=== PATIENT | male | born 1975 | race Caucasian/White ===

== ENCOUNTER 2016-12-28 20:32 | Emergency (ER) | payer OTHER ==
[~2016-12-28] VITALS: Ht 188 cm; Wt 106.9 kg
[2016-12-28 20:37] VITALS: Ht 188 cm; Wt 106.9 kg
[2016-12-28] MEDS ORDERED: LABETALOL HCL 20MG INJ IV ONE (21:00)
[2016-12-28 21:09] LABS: BASOPHIL # 0.1 10^3/ul (0.0-0.1); BASOPHILS % 0.6 % (0.0-2.0); EOSINOPHILS # 0.1 10^3/ul (0.0-0.5); EOSINOPHILS % 1.8 % (0.0-7.0); HEMATOCRIT 49.5 % (42.0-52.0); HEMOGLOBIN 16.6 g/dl (14.0-18.0); LYMPHOCYTES # 2.3 10^3/ul (0.8-2.9); LYMPHOCYTES % 29.2 % (15.0-51.0); MEAN CORPUSCULAR HEMOGLOBIN 27.2 pg (29.0-33.0); MEAN CORPUSCULAR HGB CONC 33.5 g/dl (32.0-37.0); MEAN CORPUSCULAR VOLUME 81.1 fl (82.0-101.0); MEAN PLATELET VOLUME 10.5 fl (7.4-10.4); MONOCYTE # 0.7 10^3/ul (0.3-0.9); MONOCYTES % 8.8 % (0.0-11.0); NEUTROPHIL # 4.7 10^3/ul (1.6-7.5); NEUTROPHILS % 59.3 % (39.0-77.0); PLATELET COUNT 201 10^3/UL (140-415); RED CELL DISTRIBUTION WIDTH 14.1 % (11.5-14.5); WHITE BLOOD COUNT 7.9 10^3/ul (4.8-10.8)
[2016-12-28 21:36] LABS: ANION GAP 15 (8-16); BLOOD UREA NITROGEN 15 mg/dl (7-20); CALCIUM 9.5 mg/dl (8.4-10.2); CARBON DIOXIDE 26 mmol/L (21-31); CHLORIDE 105 mmol/L (97-110); GLUCOSE 118 mg/dl (70-220); POTASSIUM 3.3 mmol/L (3.5-5.1); SODIUM 143 mmol/L (135-144)
[2016-12-28] MEDS ORDERED: POTASSIUM CHLORIDE (SR) 20 MEQ TAB PO STA (21:40)
[2016-12-28] MEDS ORDERED: HYD25 PO (21:41)
[2016-12-28 21:55] LABS: TROPONIN-I < 0.012 ng/ml (0.00-0.12)
[2016-12-28 21:58] VITALS: BP 189/105; PULSE 80; RESP 17
--- NOTE | 2016-12-28 21:59 | ERD ---
ER Documentation Chief Complaint Date/Time DATE: 12/28/16 TIME: 21:57 Chief Complaint BIB RESCUE FOR ELEVATED BP/DIZZINESS HPI Patient is a 41-year-old male with hypertension who presents with high blood pressure. He was brought in by ambulance. He said that he did not feel well at work and his blood pressure was 200/134. He tried align juice and laid down. He does not take medicines for blood pressure although he used to when he was in [place] his previous country. He denies chest pain. He denies weakness in his arms or his legs. He did not want to come to the emergency department but a friend made him come. ROS All systems reviewed and are negative except as per history of present illness. Medications Home Meds Active Scripts Hydrochlorothiazide* (Hydrochlorothiazide*) 25 Mg Tab, 25 MG PO DAILY, #30 TAB Prov:SILVIA VERDUGO MD 12/28/16 Allergies Allergies: Coded Allergies: No Known Allergy (Unverified , 12/28/16) PMhx/Soc History of Surgery: Yes (tonsilectomy) Anesthesia Reaction: No Hx Neurological Disorder: No Hx Respiratory Disorders: No Hx Cardiac Disorders: Yes (htn) Hx Psychiatric Problems: No Hx Miscellaneous Medical Probl: No Hx Alcohol Use: Yes (social) Hx Substance Use: No Hx Tobacco Use: Yes Smoking Status: Current every day smoker FmHx Family History: diabetes Physical Exam Vitals Vital Signs Date Time Temp Pulse Resp B/P Pulse Ox O2 Delivery O2 Flow Rate FiO2 12/28/16 20:37 97.9 94 18 200/111 94 Physical Exam Const: No acute distress Head: Atraumatic Eyes: Normal Conjunctiva ENT: Normal External Ears, Nose and Mouth. Neck: Full range of motion..~ No meningismus. Resp: Clear to auscultation bilaterally Cardio: Regular rate and rhythm, no murmurs Abd: Soft, non tender, non distended. Normal bowel sounds Skin: No petechiae or rashes Back: No midline or flank tenderness Ext: No cyanosis, or edema Neur: Awake and alert, cranial nerves II through XII intact, no slurred speech, strength is 5 out of 5 in all 4 extremities Psych: Normal Mood and Affect Result Diagram: 12/28/16205312/28/162053 Results 24 hrs Laboratory Tests Test 12/28/16 20:54 White Blood Count 7.910^3/ul Red Blood Count 6.1010^6/ul Hemoglobin 16.6g/dl Hematocrit 49.5% Mean Corpuscular Volume 81.1fl Mean Corpuscular Hemoglobin 27.2pg Mean Corpuscular Hemoglobin Concent 33.5g/dl Red Cell Distribution Width 14.1% Platelet Count 98854^3/UL Mean Platelet Volume 10.5fl Neutrophils % 59.3% Lymphocytes % 29.2% Monocytes % 8.8% Eosinophils % 1.8% Basophils % 0.6% Nucleated Red Blood Cells % 0.0/100WBC Neutrophils # 4.710^3/ul Lymphocytes # 2.310^3/ul Monocytes # 0.710^3/ul Eosinophils # 0.110^3/ul Basophils # 0.110^3/ul Nucleated Red Blood Cells # 0.010^3/ul Sodium Level 143mmol/L Potassium Level 3.3mmol/L Chloride Level 105mmol/L Carbon Dioxide Level 26mmol/L Anion Gap 15 Blood Urea Nitrogen 15mg/dl Creatinine 0.90mg/dl Glucose Level 118mg/dl Calcium Level 9.5mg/dl Troponin I < 0.012ng/ml Current Medications Medications (Trade) Dose Ordered Sig/Umm Route PRN Reason Start Time Stop Time Status Last Admin Dose Admin Labetalol HCl (Labetalol) 20 mg ONCE ONCE IV 12/28/16 21:00 12/28/16 21:01 DC 12/28/16 21:22 Potassium Chloride (Klor-Con 20) 40 meq ONCE STAT PO 12/28/16 21:40 12/28/16 21:42 DC Procedures/MDM EKG read by me: Rate/Rhythm: Incomplete right bundle branch block a rate of 79 Intervals: Normal Impression: Incomplete right bundle branch block without ischemia Smoking Cessation Therapy: Pt. was lectured for greater than 3 minutes on the health risks of continued smoking and the benefits of cessation. Patient is a 41-year-old male with hypertension. At this point I doubt hypertensive emergency. I doubt stroke or acute coronary syndrome. Laboratory studies show a mild hypokalemia and the patient was given calcium by mouth. I believe that outpatient management is appropriate. The patient will need to follow-up closely with the primary doctor the local clinics within 24-48 hours and have his blood pressure rechecked. He will be given a prescription for hydrochlorothiazide as he does likely have essential hypertension and will require blood pressure medications. He can return for any worsening symptoms. Departure Diagnosis: Primary Impression: Hypertension Hypertension type: essential hypertension Qualified Code: I10 - Essential hypertension Additional Impression: Hypokalemia Condition: Fair Patient Instructions: High Blood Pressure (Hypertension) Referrals: COMM[facility] CLIN[facility] YOU HAVE RECEIVED A MEDICAL SCREENING EXAM AND THE RESULTS INDICATE THAT YOU DO NOT HAVE A CONDITION THAT REQUIRES URGENT TREATMENT IN THE EMERGENCY DEPARTMENT. FURTHER EVALUATION AND TREATMENT OF YOUR CONDITION CAN WAIT UNTIL YOU ARE SEEN IN YOUR DOCTORS OFFICE WITHIN THE NEXT 1-2 DAYS. IT IS YOUR RESPONSIBILITY TO MAKE AN APPOINTMENT FOR FOLOW-UP CARE. IF YOU HAVE A PRIMARY DOCTOR --you should call your primary doctor and schedule an appointment IF YOU DO NOT HAVE A PRIMARY DOCTOR YOU CAN CALL OUR PHYSICIAN REFERRAL HOTLINE AT IF YOU CAN NOT AFFORD TO SEE A PHYSICIAN YOU CAN CHOSE FROM THE FOLLOWING [facility] [address] [facility]. [facility] [address] [facility] [facility] [address] [facility] [facility] [address] [facility]. [facility] [address] [facility]. [facility]. [address] Additional Instructions: Call your primary care doctor TOMORROW for an appointment during the next 1-2 days.See the doctor sooner or return here if your condition worsens before your appointment time. SILVIA VERDUGO MD Dec 28, 2016 21:59
== END 2016-12-28 22:00 | disposition home or self-care (01) ==
LOC: E/R 20:32
DX: I10 Essential (primary) hypertension (principal); E87.6 Hypokalemia; F17.210 Nicotine dependence, cigarettes, uncomplicated
CPT/HCPCS: 36415; 80048; 84484; 85025; 93005; 96374; Z7502; Z7610